=== PATIENT | female | born 1930 | race Caucasian/White ===

== ENCOUNTER 2016-08-07 14:58 | Inpatient (IN) | payer OTHER, MEDICARE ==
[~2016-08-07] VITALS: Ht 160 cm; Wt 87.7 kg
[2016-08-13] MEDS ORDERED: LISI-515 PO (12:12)
[2016-08-13] MEDS ORDERED: MULT-135 PO (12:12)
[2016-08-13] MEDS ORDERED: LATA0.002 EACH EYE (12:12)
[2016-08-13] MEDS ORDERED: ASPI-119 PO (12:12)
[2016-08-13] MEDS ORDERED: OMEP20TA PO (12:12)
[2016-08-13] MEDS ORDERED: LOVA20TA PO (12:12)
--- NOTE | 2016-08-14 07:02 | HHI.DCPOC ---
Discharge Care Plan Diagnosis: (1) Primary localized osteoarthrosis, lower leg (2) Status post total knee replacement, right Your Health Problems Are: Difficulty with ADL Goals to Promote Your Health * To prevent worsening of your condition and complications * To maintain your health at the optimal level Directions to Meet Your Goals Take your medications as prescribed Follow your dietary instruction Follow activity as directed Keep your appointments as scheduled Take your immunizations and boosters as scheduled If your symptoms worsen call your PCP, if no PCP go to Urgent Care Center or Emergency Room Smoking is Dangerous to Your Health. Avoid second hand smoke Call the 24-hour hour crisis hotline for domestic abuse at Lauri Connor Aug 14, 2016 07:02
--- NOTE | 2016-08-14 07:03 | HHI.FF ---
Face to Face Verification Diagnosis: (1) Primary localized osteoarthrosis, lower leg (2) Status post total knee replacement, right Physical Therapy Gait training, Transfer training, bed to chair Knee: Total knee Right LE Weight Bearing: WB as tolerated Right LE Range of Motion: Active ROM Nursing Nursing: Katherine teaching, Dressing changes Dressing Changes: Daily dressing change I have seen patient Mag Rodriguez on 08/14/16. My clinical findings support the need for the requested home health care services because: Limited ability to care for self High risk of falls I certify that my clinical findings support that this patient is homebound because: Post-op weakness Unsteady gait/balance Lauri Connor Aug 14, 2016 07:03
[2016-08-14] MEDS ORDERED: COMMODE 3-IN-11 MIS (07:04)
[2016-08-14] MEDS ORDERED: WALKER WHEELS/F1 MIS (07:04)
[2016-08-14] MEDS ORDERED: CPMMACHINE (07:04)
[2016-08-14] MEDS ORDERED: DEXAMETHASONE SOD PHOS 20 MG/5 ML VIAL IV ONE (07:30)
[2016-08-14] MEDS ORDERED: TRANEXAMIC ACID INJ 829 MG in SODIUM CHLORIDE 0.9% INJ 100 ML IV SCH ×2 (07:30→16:47)
[2016-08-14] MEDS ORDERED: VANCOMYCIN 1000 MG/NS 250 ML (for <70 kg) IV SCH ×2 (07:30)
[2016-08-14] MEDS ORDERED: ROPIVACAINE PERI-ARTICULAR INJECTION. PERIART SCH ×5 (07:30)
[2016-08-14] MEDS ORDERED: ceFAZolin 2 GM PREMIX 50 ML IV SCH (07:30)
[2016-08-14] MEDS: POVIDONE IODINE 7.5% SCRUB 118 ML BOTTLE TOP SCH (07:30)
[2016-08-14] MEDS ORDERED: LACTATED RINGER'S 1000 ML IV SCH (07:45)
[2016-08-14] MEDS ORDERED: INSULIN HUMAN REGULAR 1,000 UNITS/10 ML VIAL SQ PRN (07:45)
[2016-08-14] MEDS ORDERED: SODIUM CHLORID 0.9% 500 ML IV SCH (07:45)
[2016-08-14] MEDS ORDERED: METOPROLOL TARTRATE 25 MG TAB PO PRN (07:45)
[2016-08-14] MEDS ORDERED: LACTATED RINGER'S 1000 ML INJ 1,000 ML IV ONE (08:10)
[2016-08-14] MEDS ORDERED: GENTAMICIN SULFATE 80 MG/2 ML VIAL ONE (08:10)
[2016-08-14] MEDS ORDERED: NEOSTIGMINE 3 MG/3 ML SYR IV ONE (08:10)
[2016-08-14] MEDS ORDERED: ONDANSETRON HCL 4 MG/2 ML VIAL IV PUSH ONE (08:10)
[2016-08-14] MEDS ORDERED: PROPOFOL 200 MG/20 ML AMP IV ONE (08:10)
[2016-08-14] MEDS ORDERED: VITACAP7 PO (08:19)
[2016-08-14 08:27] VITALS: BP 161/69; PULSE 56; RESP 16; TEMP 97.9; O2SAT 99
[2016-08-14] MEDS ORDERED: MIDAZOLAM HCL 2 MG/2 ML VIAL ONE (11:35)
[2016-08-14] MEDS ORDERED: FAMOTIDINE 20 MG/2 ML VIAL ONE (11:35)
[2016-08-14] MEDS ORDERED: BUPIVACAINE LIPOSOME PF 1.3% 20 ML VIAL ONE (12:17)
[2016-08-14] MEDS ORDERED: ACETAMINOPHEN 1000 MG/100 ML VIAL IV ONE (12:54)
[2016-08-14] MEDS ORDERED: HYDROmorphone HCL PF 2 MG/ML VIAL ONE (12:54)
[2016-08-14] MEDS ORDERED: ZOLPIDEM TARTRATE 5 MG TAB PO PRN (13:00)
[2016-08-14] MEDS ORDERED: diphenhydrAMINE HCL 50 MG/ML VIAL IV PRN (13:00)
[2016-08-14] MEDS ORDERED: MAGNESIUM HYDROXIDE SUSP 30 ML CUP PO PRN (13:00)
[2016-08-14] MEDS ORDERED: ONDANSETRON HCL 4 MG/2 ML VIAL IVP PRN (13:00)
[2016-08-14] MEDS ORDERED: SODIUM CHLORIDE 0.9% FLUSH 5 ML FLUSH IVF PRN (13:00)
[2016-08-14] MEDS ORDERED: MORPHINE SULFATE 4 MG/ML INJ IV PUSH PRN (13:00)
[2016-08-14] MEDS ORDERED: ACETAMINOPHEN/HYDROcodone 325 MG/5 MG TAB PO PRN (13:00)
[2016-08-14] MEDS ORDERED: ALUMINUM/MAGNESIUM/SIMETH 30 ML CUP PO PRN (13:00)
[2016-08-14] MEDS ORDERED: BISACODYL 10 MG SUPP PR PRN (13:00)
[2016-08-14] MEDS ORDERED: Post-op Orders (for Pharmacy) MISC XX ONE (13:00)
[2016-08-14] MEDS ORDERED: NALOXONE HCL 0.4 MG/ML AMP IV PRN (13:00)
--- NOTE | 2016-08-14 13:00 | PD.OP ---
cc: Jasson Calix MD Operative Report Date of Surgery: Aug 14, 2016 Preoperative Diagnosis: Right knee severe osteoarthritis Postoperative Diagnosis: Same Procedure: Right total knee arthroplasty Anesthesia: Adductor canal block and general Surgeon: Jasson Calix Mechanical Manufacturing Technician(s): NICK Voss The surgical procedure was assisted by my Advanced Registered Nurse Practitioner. My OPTICAL INSTRUMENT INSPECTOR presence was necessary throughout this case for the manipulation and positioning of the surgical extremity. My OPTICAL INSTRUMENT INSPECTOR was assisting me throughout the duration of this procedure. The skill set of an Advance Registered Nurse Practitioner was medically necessary to complete this procedure. During the surgical case, the fire extinguisher technician was working at the back table and the Advance Registered Nurse Practitioner was directly assisting me. Operation and Findings: IMPLANTS: DePuy Attune: Patella: size 38. Femur, posterior stabilized size 7. Tibia, rotating platform size 8. Tibial insert, rotating platform, posterior stabilized size 6 mm thickness. ESTIMATED BLOOD LOSS: 200 cc TOURNIQUET TIME: 42 minutes at 250 mmHg pressure. JUSTIFICATION FOR PROCEDURE: The patient has end-stage osteoarthritis to the knee. There is an attached conservative measures pathway form in the chart that describes the nonoperative measures that were undertaken prior to consideration of surgical management. The patient understood the risks and benefits of surgical management. See my office notes for further details PROCEDURE: The patient was brought back to the operative theatre. Adequate anesthesia was obtained. The patient received intravenous vancomycin and Ancef. The lower extremity was prepped and draped in the usual sterile fashion.The leg was exsanguinated, the tourniquet was raised. A standard anterior incision was performed followed by medial parapatellar arthrotomy was performed. End-stage arthritis was identified. Osteotomy of the patella was performed. We drilled holes for the patella. We trialed the patella component. We placed an intramedullary guide into the distal femur. We ultimately resected 13 mm off of the distal femur in 5 degrees of valgus. The remnants of the ACL and PCL were resected. Osteotomy of the proximal tibia was performed, resecting 5 mm off of the medial side. This was done with 3 degrees of posterior slope using an extramedullary guide. The distal end of the guide was placed in the mid aspect of the ankle. The femur was sized, and four chamfer cuts were completed in 3 of external rotation. We then cut the central box in the distal femur to replace the PCL. We resected the remnants of the menisci and removed osteophytes off of the femur and tibia. We then trialed the knee. We punched the tibia for the keel, and then used standard technique to cement in components. Excess cement was removed. We trialed the knee again and the final polyethylene thickness was chosen to provide extension to 0 degrees, and flexion of 140 degrees to gravity. The ligaments were appropriately balanced. Lateral release was necessary to obtain excellent patellofemoral tracking. The tourniquet was released and adequate hemostasis was obtained. An intra- articular injection of a ropivacaine cocktail was injected. The posterior knee was inspected for excess cement, which was removed. The final polyethylene was put into position after thorough irrigation. We then closed deep fascia with a #2 Stratafix followed by skin with 2-0 Vicryl followed by renita. Postop plan is to weight-bear as tolerated. DVT prophylaxis will be performed with EUSEBIA Butcher, early mobilization, and Lovenox followed by aspirin. Jasson Calix MD Aug 14, 2016 13:00
[2016-08-14] MEDS ORDERED: ENOX40P SQ (13:02)
[2016-08-14] MEDS ORDERED: NORC5TAB PO (13:02)
[2016-08-14] MEDS ORDERED: ASPI325T PO (13:02)
[2016-08-14] MEDS ORDERED: DO NOT ADM ANY ANTICOAGULANT DRUGS XX PRN (14:43)
[2016-08-14] MEDS: SODIUM CHLOR 0.9% 1000 ML INJ 1,000 ML IV SCH (15:00)
[2016-08-14] MEDS ORDERED: *morphine SULFATE 8 MG/ML PERIprocedure ONLY ONE ×3 (15:17→16:43)
--- NOTE | 2016-08-14 16:23 | RADRPT ---
EXAM DATE/TIME: 08/14/2016 14:45 [facility] COMPARISON: No previous studies available for comparison. INDICATIONS : Post op right knee surgery. MEDICAL HISTORY : None. SURGICAL HISTORY : None. ENCOUNTER: Initial ACUITY: 1 day PAIN SCORE: Non-responsive. LOCATION: Right knee FINDINGS: AP and lateral views of the knee following arthroplasty reveals a prosthesis in anatomic alignment. F racture is not appreciated. Surgical drain is evident CONCLUSION: Status post total knee arthroplasty. Kasi Stout MD FACR Board Certified Radiologist. This report was verified electronically.
[2016-08-14] MEDS ORDERED: ENALAPRILAT 1.25 MG/ML VIAL IV PUSH PRN (18:00)
[2016-08-14 20:45] VITALS: BP 137/64; PULSE 75; RESP 18; TEMP 96.1; O2SAT 97
[2016-08-14] MEDS: LISINOPRIL 20 MG TAB PO SCH (21:05)
[2016-08-14] MEDS: PANTOPRAZOLE SOD 20 MG DELAYED RELEASE TAB PO SCH (21:05)
[2016-08-14] MEDS: PRAVASTATIN SOD 20 MG TAB PO SCH (21:05)
[2016-08-14] MEDS: LATANOPROST 0.005% OPHT SOLN 2.5 ML BTL EACH EYE SCH (21:05)
[2016-08-14] MEDS: SODIUM CHLORIDE 0.9% FLUSH 5 ML FLUSH IVF SCH (21:06)
[2016-08-15] VITALS (8 sets, daily range): BP systolic 96–116; BP diastolic 50–58; PULSE 61–76; RESP 16–18; TEMP 95.7–98.4; O2SAT 93–98
[2016-08-15] MEDS: SODIUM CHLOR 0.9% 1000 ML INJ 1,000 ML IV SCH (01:00)
[2016-08-15] MEDS: POVIDONE IODINE 7.5% SCRUB 118 ML BOTTLE TOP SCH (04:48)
[2016-08-15 05:02] LABS: AUTOMATED NEUTROPHIL # 11.8 TH/MM3 (1.8-7.7); BASOPHIL % 0.1 % (0.0-2.0); HEMO FLAGS DIFF FINAL; LYMPH % 6.7 % (9.0-44.0); LYMPHOCYTE # 0.9 TH/MM3 (1.0-4.8); MEAN CELL VOLUME 89.9 FL (80.0-100.0); MEAN CORPUSCULAR HEMOGLOBIN 29.8 PG (27.0-34.0); MEAN CORPUSCULAR HGB CONC 33.1 % (32.0-36.0); MONO % 6.7 % (0.0-8.0); NEUT % 86.5 % (16.0-70.0); PLATELET COUNT 227 TH/MM3 (150-450); RED BLOOD COUNT 3.45 MIL/MM3 (4.00-5.30); RED CELL DISTRIBUTION WIDTH 12.5 % (11.6-17.2); WHITE BLOOD COUNT 13.6 TH/MM3 (4.0-11.0)
[2016-08-15 05:28] LABS: BICARBONATE 24.8 MEQ/L (21.0-32.0); POTASSIUM 4.5 MEQ/L (3.5-5.1)
[2016-08-15] MEDS ORDERED: POLYETHYLENE GLYCOL 17 GM PKG PO PRN (05:45)
[2016-08-15] MEDS ORDERED: DEXAMETHASONE SOD PHOS 20 MG/5 ML VIAL IV ONE (07:45)
[2016-08-15] MEDS: SODIUM CHLORIDE 0.9% FLUSH 5 ML FLUSH IVF SCH ×2 (10:03→22:00)
[2016-08-15] MEDS: ACETAMINOPHEN/HYDROcodone 325 MG/5 MG TAB PO PRN ×3 (10:10→18:35)
--- NOTE | 2016-08-15 11:16 | PD.CONS ---
HPI Service [facility] Hospitalists Consult Requested By Dr. Calix Reason for Consult Medical management Primary Care Physician Darrell Meléndez MD Diagnoses: (1) Primary localized osteoarthrosis, lower leg (2) Hyperlipidemia (3) Hypertension History of Present Illness The patient is an 86-year-old female seen following right total knee arthroplasty. Hospitalist consult was requested for medical management. Patient states that she is having pain in her right leg, but has no other complaints at this time. Denies headache, blurred vision, chest pain, dyspnea, nausea, vomiting. Review of Systems Constitutional: DENIES: Fever, Chills, Night Sweats Eyes: DENIES: Blurred vision, Vision loss Ears, nose, mouth, throat: DENIES: Hearing loss Respiratory: DENIES: Cough, Wheezing, Sputum production, Shortness of breath Cardiovascular: DENIES: Chest pain, Palpitations, Dyspnea on Exertion, Lower Extremity Edema Gastrointestinal: DENIES: Abdominal pain, Constipation, Diarrhea, Nausea, Vomiting Genitourinary: DENIES: Urinary frequency, Urinary incontinence, Urgency, Hematuria, Dysuria, Nocturia Musculoskeletal: COMPLAINS OF: Joint pain, DENIES: Muscle aches Integumentary: DENIES: Pruritus, Rash Hematologic/lymphatic: DENIES: Bruising Neurologic: DENIES: Headache Past Family Social History Allergies: Coded Allergies: No Known Allergies (Verified , 08/14/16) Past Medical History Hypertension Impaired glucose tolerance Hyperlipidemia GERD Osteoarthritis Past Surgical History Cyst removed from neck 1978 Tonsillectomy Reported Medications Estrace cream twice weekly Aspirin 81 mg daily Latanoprost eyedrops Meclizine as needed Omeprazole 20 mg daily Lisinopril 20 mg daily Lovastatin 20 mg daily Vitamin D 3 Family History Cancer Hypertension Social History Quit smoking more than 10 years ago. Denies illicit drug use. Drinks a couple glasses of wine per day. Physical Exam Vital Signs Vital Signs Date Time Temp Pulse Resp B/P Pulse Ox O2 Delivery O2 Flow Rate FiO2 08/15/16 08:40 98 Nasal Cannula 3.00 08/15/16 08:15 95.7 62 18 96/50 98 08/15/16 04:00 96.9 63 18 98/51 98 08/15/16 00:00 97.3 61 18 100/52 97 08/14/16 20:45 96.1 75 18 137/64 97 08/14/16 20:45 96.1 75 18 137/64 97 08/14/16 19:00 97.7 63 11 126/66 93 Nasal Cannula 4 08/14/16 18:00 75 12 130/68 94 Nasal Cannula 4 08/14/16 17:00 79 12 157/87 95 Nasal Cannula 4 08/14/16 16:30 63 12 141/68 97 Nasal Cannula 4 08/14/16 16:00 97.7 60 12 145/71 95 Nasal Cannula 4 08/14/16 15:30 67 12 161/79 92 Nasal Cannula 4 08/14/16 15:15 71 12 177/91 97 Nasal Cannula 4 08/14/16 15:00 72 17 162/83 94 Nasal Cannula 4 08/14/16 14:45 98.7 86 14 185/91 95 Nasal Cannula 4 Physical Exam GENERAL: Elderly female in no acute distress. HEENT: Normocephalic, atraumatic. Pupils equal, round and reactive. Extraocular movements intact. No scleral icterus. No injection or drainage. Oropharynx is clear. Mucous membranes are moist. CARDIOVASCULAR: Regular rate and rhythm without murmurs, gallops, or rubs. RESPIRATORY: Clear to auscultation. No wheezes, rales, or rhonchi. Breathing is non-labored. GASTROINTESTINAL: Abdomen soft, non-tender, nondistended. EXTREMITIES: No lower extremity edema. No calf tenderness. EUSEBIA hose. PSYCH: Alert and oriented x 3. Laboratory Laboratory Tests Test 08/15/16 04:38 White Blood Count 13.6 Red Blood Count 3.45 Hemoglobin 10.3 Hematocrit 31.0 Mean Corpuscular Volume 89.9 Mean Corpuscular Hemoglobin 29.8 Mean Corpuscular Hemoglobin 33.1 Concent Red Cell Distribution Width 12.5 Platelet Count 227 Mean Platelet Volume 7.9 Neutrophils (%) (Auto) 86.5 Lymphocytes (%) (Auto) 6.7 Monocytes (%) (Auto) 6.7 Eosinophils (%) (Auto) 0.0 Basophils (%) (Auto) 0.1 Neutrophils # (Auto) 11.8 Lymphocytes # (Auto) 0.9 Monocytes # (Auto) 0.9 Eosinophils # (Auto) 0.0 Basophils # (Auto) 0.0 CBC Comment DIFF FINAL Differential Comment Sodium Level 141 Potassium Level 4.5 Chloride Level 109 Carbon Dioxide Level 24.8 Anion Gap 7 Blood Urea Nitrogen 18 Creatinine 0.78 Estimat Glomerular Filtration 70 Rate Random Glucose 106 Calcium Level 8.0 Result Diagram: 08/15/168 08/15/16 0438 Imaging Last Impressions Knee X-Ray 08/14/16 1255 Signed Impressions: Service Date/Time: Sunday, August 14, 2016 14:45 - CONCLUSION: Status post total knee arthroplasty. Kasi Stout MD Assessment and Plan Assessment and Plan 1. Osteoarthritis: Status post right total knee arthroplasty, POD #1. Management per orthopedic surgery. Continue pain control, bowel regimen, physical therapy. 2. Hypertension: Blood pressure is borderline low. On lisinopril. 3. Hyperlipidemia: Continue statin. GERD: Continue PPI. 4. DVT prophylaxis: Lovenox. Christ Cortes MD Aug 15, 2016 11:16
--- NOTE | 2016-08-15 12:58 | PD.ORT.PN ---
Subjective Post Op Day #: 1 Subjective Remarks Patient is resting in bed, using CPM. Patient has been ambulatory and still has Larkin cath in place. 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 Patient is c/o some right calf pain. Objective Vitals Vital Signs Date Time Temp Pulse Resp B/P Pulse Ox O2 Delivery O2 Flow Rate FiO2 08/15/16 12:06 97.5 76 16 105/52 93 08/15/16 08:40 98 Nasal Cannula 3.00 08/15/16 08:15 95.7 62 18 96/50 98 08/15/16 04:00 96.9 63 18 98/51 98 08/15/16 00:00 97.3 61 18 100/52 97 08/14/16 20:45 96.1 75 18 137/64 97 08/14/16 20:45 96.1 75 18 137/64 97 08/14/16 19:00 97.7 63 11 126/66 93 Nasal Cannula 4 08/14/16 18:00 75 12 130/68 94 Nasal Cannula 4 08/14/16 17:00 79 12 157/87 95 Nasal Cannula 4 08/14/16 16:30 63 12 141/68 97 Nasal Cannula 4 08/14/16 16:00 97.7 60 12 145/71 95 Nasal Cannula 4 08/14/16 15:30 67 12 161/79 92 Nasal Cannula 4 08/14/16 15:15 71 12 177/91 97 Nasal Cannula 4 08/14/16 15:00 72 17 162/83 94 Nasal Cannula 4 08/14/16 14:45 98.7 86 14 185/91 95 Nasal Cannula 4 I/O 08/14/16 08/14/16 08/14/16 08/15/16 08/15/16 08/15/16 07:00 15:00 23:00 07:00 15:00 23:00 Intake Total 1400 ml 120 ml 480 ml Output Total 125 ml 150 ml 250 ml Balance 1275 ml -30 ml 230 ml Intake Oral 120 ml 480 ml Other 1400 ml Output Urine Total 150 ml 250 ml Estimated Blood Loss 25 ml Other 100 ml # Voids 1 Result Diagram: 08/15/16 0438 08/15/16 0438 Imaging Last 24 hours Impressions Knee X-Ray 08/14/16 1255 Signed Impressions: Service Date/Time: Sunday, August 14, 2016 14:45 - CONCLUSION: Status post total knee arthroplasty. Kasi Stout MD Procedures Right TKA Objective Remarks The patient's dressing is C/D/I. EHL/TA/G intact. 2+ pedal pulse. Mild to moderate swelling. Calf is soft but moderately tender to palpation. + SILT. Assessment & Plan Ortho Post Op Day #: 1 Problem List: Assessment and Plan POD #1: Right TKA 1. WBAT RLE 2. Lovenox for DVT prophylaxis 3. Ice to the right knee PRN 4. Remove Larkin cath now 5. Stat US to r/o DVT ro right leg secondary to calf tenderness. 6. Anticipatory discharge home with home health on Friday. Lauri Connor Aug 15, 2016 12:58
[2016-08-15] MEDS: ENOXAPARIN SODIUM 40 MG/0.4 ML SYRINGE SQ SCH (13:56)
--- NOTE | 2016-08-15 15:23 | RADRPT ---
EXAM DATE/TIME: 08/15/2016 13:25 [facility] COMPARISON: No previous studies available for comparison. INDICATIONS : Right leg pain. MEDICAL HISTORY : Hypercholesterolemia. Hypertension. Gastroesophageal reflux disease. Arthrit is. SURGICAL HISTORY : Tonsillectomy. Cataract removal. Bladder sling. Orthopedic surgery, right s [facility]. Skin cancer removed from left hand. ENCOUNTER: Initial ACUITY: 2 weeks PAIN SCORE: 10/10 LOCATION: Right leg. TECHNIQUE: Venous ultrasound of the leg was performed from the inguinal ligament to the proximal calf. Real-time, color Doppler and spectral tracing, compression and augmentation techniques were us ed. FINDINGS: There is normal compressibility of the deep venous system from the inguinal region to the proximal ca lf. No echogenic clot is seen in the lumen of the common femoral, femoral, popliteal, and posterior tibial veins. There is a normal response of the venous system to proximal and distal augmentation an d respiration. There is a hypoechoic complex fluid collection identified within the popliteal fossa. Given the patie nt's history of right knee arthroplasty yesterday this is likely a hematoma. CONCLUSION: #1. No evidence of DVT. #2. Fluid collection identified within the popliteal fossa which likely represents hematoma given rec ent surgery. Regla Mcfadden MD on August 15, 2016 at 15:20 Board Certified Radiologist. This report was verified electronically.
[2016-08-15] MEDS: DOCUSATE SODIUM 100 MG CAP PO SCH (21:59)
[2016-08-15] MEDS: MULTIVITAMINS/MINERALS THERAPEUTIC TAB PO SCH (21:59)
[2016-08-15] MEDS: PRAVASTATIN SOD 20 MG TAB PO SCH (21:59)
[2016-08-15] MEDS: LISINOPRIL 20 MG TAB PO SCH (21:59)
[2016-08-15] MEDS: PANTOPRAZOLE SOD 20 MG DELAYED RELEASE TAB PO SCH (22:00)
[2016-08-15] MEDS: LATANOPROST 0.005% OPHT SOLN 2.5 ML BTL EACH EYE SCH (22:01)
[2016-08-16] VITALS: BP 102/50; PULSE 76; RESP 16; TEMP 96.4; O2SAT 94
[2016-08-16] MEDS: SODIUM CHLOR 0.9% 1000 ML INJ 1,000 ML IV SCH (07:00)
[2016-08-16 07:10] LABS: HEMATOCRIT 27.6 % (35.0-46.0); MEAN CELL VOLUME 88.2 FL (80.0-100.0); MEAN CORPUSCULAR HEMOGLOBIN 30.7 PG (27.0-34.0); MEAN CORPUSCULAR HGB CONC 34.8 % (32.0-36.0); PLATELET COUNT 190 TH/MM3 (150-450); RED BLOOD COUNT 3.13 MIL/MM3 (4.00-5.30); RED CELL DISTRIBUTION WIDTH 12.5 % (11.6-17.2); REVIEW FLAG FINAL; WHITE BLOOD COUNT 9.8 TH/MM3 (4.0-11.0)
[2016-08-16] MEDS: POVIDONE IODINE 7.5% SCRUB 118 ML BOTTLE TOP SCH (07:30)
[2016-08-16 08:00] VITALS: BP 140/62; PULSE 65; RESP 16; TEMP 98; O2SAT 98
[2016-08-16] MEDS: ACETAMINOPHEN/HYDROcodone 325 MG/5 MG TAB PO PRN ×2 (08:22→13:17)
[2016-08-16] MEDS: DOCUSATE SODIUM 100 MG CAP PO SCH (08:22)
[2016-08-16] MEDS: MULTIVITAMINS/MINERALS THERAPEUTIC TAB PO SCH (08:22)
[2016-08-16] MEDS: SODIUM CHLORIDE 0.9% FLUSH 5 ML FLUSH IVF SCH (08:23)
[2016-08-16] MEDS: ENOXAPARIN SODIUM 40 MG/0.4 ML SYRINGE SQ SCH (13:15)
--- NOTE | 2016-08-16 15:24 | PD.ORT.PN ---
Subjective Post Op Day #: 2 Subjective Remarks Patient is OOB in chair with moderate pain to the right knee. Patient states she is ready to go home with home health. Objective Vitals Vital Signs Date Time Temp Pulse Resp B/P Pulse Ox O2 Delivery O2 Flow Rate FiO2 08/16/16 08:00 98.0 65 16 140/62 98 08/16/16 00:00 96.4 76 16 102/50 94 08/15/16 20:25 98 08/15/16 20:00 97.6 61 16 110/57 95 08/15/16 16:10 98.4 64 16 116/58 93 I/O 08/15/16 08/15/16 08/15/16 08/16/16 08/16/16 08/16/16 07:00 15:00 23:00 07:00 15:00 23:00 Intake Total 480 ml 860 ml 240 ml 240 ml Output Total 250 ml Balance 230 ml 860 ml 240 ml 240 ml Intake Oral 480 ml 860 ml 240 ml 240 ml Output Urine Total 250 ml # Voids 1 1 2 # Bowel Movements 0 0 Result Diagram: 08/16/16 0630 08/15/16 0438 Imaging Last 24 hours Impressions Knee X-Ray 08/14/16 1255 Signed Impressions: Service Date/Time: Sunday, August 14, 2016 14:45 - CONCLUSION: Status post total knee arthroplasty. Kasi Stout MD Procedures Right TKA Objective Remarks The patient's dressing was changed with scant serosanguineous drainage. Incision is well approximated with surgical clips intact. No redness or s/s of infection. EHL/TA/G intact. 2+ pedal pulse. Moderate swelling. Calf is soft and mildly tender. + SILT. Last 48 hours Impressions Lower Extremity Ultrasound 08/15/16 0000 Signed Impressions: Service Date/Time: July 13:25 - CONCLUSION: #1. No evidence of DVT. #2. Fluid collection identified within the popliteal fossa which likely represents hematoma given recent surgery. Regla Mcfadden MD Assessment & Plan Ortho Post Op Day #: 2 Problem List: Assessment and Plan POD #2: Right TKA 1. WBAT RLE 2. Lovenox for DVT prophylaxis 3. Ice to the right knee PRN 4. US was negative for DVT. 5. Stable for discharge home with home health today. Lauri Connor Aug 16, 2016 15:24
--- NOTE | 2016-08-16 16:00 | HHI.PR ---
Subjective Remarks Follow-up hypertension. Patient has been cleared for discharge by orthopedic surgery. She is having more pain in the right knee today, but the pain medications are helping. No chest pain or dyspnea. No nausea or vomiting. Objective Vitals Vital Signs Date Time Temp Pulse Resp B/P Pulse Ox O2 Delivery O2 Flow Rate FiO2 08/16/16 08:00 98.0 65 16 140/62 98 08/16/16 00:00 96.4 76 16 102/50 94 08/15/16 20:25 98 08/15/16 20:00 97.6 61 16 110/57 95 08/15/16 16:10 98.4 64 16 116/58 93 I/O 08/15/16 08/15/16 08/15/16 08/16/16 08/16/16 08/16/16 07:00 15:00 23:00 07:00 15:00 23:00 Intake Total 480 ml 860 ml 240 ml 240 ml Output Total 250 ml Balance 230 ml 860 ml 240 ml 240 ml Intake Oral 480 ml 860 ml 240 ml 240 ml Output Urine Total 250 ml # Voids 1 1 2 # Bowel Movements 0 0 Result Diagram: 08/16/16 0630 08/15/16 0438 Imaging Last Impressions Lower Extremity Ultrasound 08/15/16 0000 Signed Impressions: Service Date/Time: July 13:25 - CONCLUSION: #1. No evidence of DVT. #2. Fluid collection identified within the popliteal fossa which likely represents hematoma given recent surgery. Regla Mcfadden MD Knee X-Ray 08/14/16 1255 Signed Impressions: Service Date/Time: Sunday, August 14, 2016 14:45 - CONCLUSION: Status post total knee arthroplasty. Kasi Stout MD Objective Remarks General: Elderly female in no acute distress. Heart: Regular rate and rhythm. No murmur. Lungs: Clear to auscultation bilaterally. No wheezes, rales, or rhonchi. Breathing is nonlabored. Abdomen: Soft, nontender, nondistended. Extremities: No lower extremity edema. Psych: Alert and oriented. Procedures 08/14/16 right total knee arthroplasty Urinary Catheter: No Vascular Central Line Catheter: No A/P Problem List: (1) Primary localized osteoarthrosis, lower leg ICD Code: M17.10 Status: Acute (2) Hyperlipidemia ICD Code: E78.5 Status: Chronic (3) Hypertension ICD Code: I10 Status: Chronic Assessment and Plan 1. Osteoarthritis: Status post right total knee arthroplasty, POD #2. Management per orthopedic surgery. Continue pain control, bowel regimen, physical therapy. 2. Hypertension: Blood pressure is improved. On lisinopril. 3. Hyperlipidemia: Continue statin. GERD: Continue PPI. 4. DVT prophylaxis: Lovenox. Discharge Planning Discharge home with home health care per orthopedic surgery. Christ Cortes MD Aug 16, 2016 16:00
--- NOTE | 2016-08-17 17:21 | HHI.DS ---
Discharge Summary Admission Date Aug 14, 2016 at 06:38 Discharge Date: Aug 16, 2016 Admitting Diagnosis Primary localized OA, lower leg Status post total knee replacement, right Diagnosis: (1) Primary localized osteoarthrosis, lower leg Diagnosis: Principal (2) Status post total knee replacement, right Diagnosis: Principal Procedures Right TKA Brief History This is a 86 year old female patient with severe OA of the right knee CBC/BMP: 08/16/16 0630 08/15/16 0438 Significant Findings Laboratory Tests Test 08/15/16 08/16/16 04:38 06:30 White Blood Count 13.6 TH/MM3 (4.0-11.0) Red Blood Count 3.45 MIL/MM3 3.13 MIL/MM3 (4.00-5.30) (4.00-5.30) Hemoglobin 10.3 GM/DL 9.6 GM/DL (11.6-15.3) (11.6-15.3) Hematocrit 31.0 % 27.6 % (35.0-46.0) (35.0-46.0) Neutrophils (%) (Auto) 86.5 % (16.0-70.0) Lymphocytes (%) (Auto) 6.7 % (9.0-44.0) Neutrophils # (Auto) 11.8 TH/MM3 (1.8-7.7) Lymphocytes # (Auto) 0.9 TH/MM3 (1.0-4.8) Chloride Level 109 MEQ/L (98-107) Estimat Glomerular Filtration 70 ML/MIN (>89) Rate Calcium Level 8.0 MG/DL (8.5-10.1) PE at Discharge The patient's dressing was changed with scant serosanguineous drainage. Incision is well approximated with surgical clips intact. No redness or s/s of infection. EHL/TA/G intact. 2+ pedal pulse. Moderate swelling. Calf is soft and mildly tender. + SILT. Last 48 hours Impressions Lower Extremity Ultrasound 08/15/16 0000 Signed Impressions: Service Date/Time: July 13:25 - CONCLUSION: #1. No evidence of DVT. #2. Fluid collection identified within the popliteal fossa which likely represents hematoma given recent surgery. Regla Mcfadden MD Hospital Course The patient was admitted to the hospital for severe OA of the right knee to have a right TKA. The patient's surgery went well without complication. The patient had a normal hospital course. The patient is WBAT with the use of a walker. The patient was discharged home with home health and will f/u in the office with Dr. Calix in 1-2 weeks. Pt Condition on Discharge: Stable Discharge Disposition: Disch w/ Home Health Serv Discharge Instructions Diet Instructions: As Tolerated, No Restrictions Activities You Can Perform: Weight Bearing as Ramesh Activities to Avoid: Strenuous Activity Follow up Referrals: Orthopedics with Jasson Calix MD New Medications: Aspirin (Aspirin) 325 Mg Tab 325 MG PO DAILY Start Aspirin after Lovenox is completed. Prevent Blood Clot # 30 Ref 0 TAB Commode 3-in-1 (Commode 3-in-1) 1 Mis Mis 1 EA .ROUTE DIRECTED #1 Ref 0 EA CPM-Continuous Passive Motion Machine (CPM-Continuous Passive Motion Machine) 1 Ea Device 1 EA .ROUTE DIRECTED #1 Ref 0 EA Enoxaparin Inj (Lovenox Inj) 40 Mg/0.4 Ml Syr 40 MG SQ DAILY Start Aspirin after Lovenox is completed. Blood Clot Prevention # 10 Ref 0 SYRINGE Hydrocodone-Acetaminophen ([place]) 5-325 mg Tab 1-2 TAB PO Q4H PRN PAIN #60 Ref 0 TAB Walker with Front Wheels (Walker with Front Wheels) 1 Mis Mis 1 EA .ROUTE DIRECTED #1 Ref 0 EA Continued Medications: Latanoprost Opth Drops (Latanoprost Opth Drops) 0.005% Drops 1 DROP EACH EYE HS Refrigerate until opened. Glaucoma #2.5 Ref 0 ML Lisinopril (Lisinopril) 20 Mg Tab 20 MG PO HS #30 Ref 0 TAB Lovastatin (Lovastatin) 20 Mg Tab 20 MG PO HS Cholesterol Management #30 Ref 0 TAB Multiple Vitamin (Multi Vitamin) 1 Tab Tab 1 TAB PO DAILY TAB Omeprazole (Omeprazole) 20 Mg Tab 20 MG PO HS #30 Ref 0 TAB Discontinued Medications: Aspirin (Pritesh Low Dose) 81 Mg Tabdr 81 MG PO HS Lauri Connor Aug 17, 2016 17:21
== END 2016-08-16 16:21 | disposition home health service (06) | DRG 470 ==
LOC: HSDI 08-14 06:38 → N06A 08-14 20:05
PROVIDERS: ADMIT Orthopaedic Surgery; ATTEND Orthopaedic Surgery
PROC: 3E0T3CZ (ICD-10-PCS; 2016-08-14)
PROC: 0SRC0J9 Replacement of Right Knee Joint with Synthetic Substitute, Cemented, Open Approach (ICD-10-PCS; principal; 2016-08-14 12:35)
DX: M17.11 Unilateral primary osteoarthritis, right knee (principal); I10 Essential (primary) hypertension; E78.5 Hyperlipidemia, unspecified; K21.9 Gastro-esophageal reflux disease without esophagitis; M79.661 Pain in right lower leg
CPT/HCPCS: 73560; 80048; 85025; 85027; 86850; 86900; 86901; 93971; 94150; C1776; C9290; J0131; J0171; J0690; J0735; J1100; J1170; J1580; J1650; J1885; J2250; J2270; J2405; J2710; J2795; J3010; J3370; J7030; J7050; J7120; L1830

== ENCOUNTER 2016-12-31 17:49 | Emergency (ER) | payer OTHER ==
[~2016-12-31] VITALS: Ht 160 cm; Wt 80.0 kg
[~2016-12-31 17:49] MED LIST: ASPI325T PO; COMMODE 3-IN-11 MIS; CPMMACHINE; ENOX40P SQ; LATA0.002 EACH EYE; LISI-515 PO; LOVA20TA PO; MULT-135 PO; NORC5TAB PO; OMEP20TA PO; VITACAP7 PO; WALKER WHEELS/F1 MIS
[2016-12-31 18:05] VITALS: BP 156/66; PULSE 74; RESP 16; TEMP 99.5; O2SAT 96
[2016-12-31] MEDS ORDERED: ASPI81TA11 PO (18:54)
[2016-12-31] MEDS ORDERED: OMEP20TA PO (18:54)
[2016-12-31] MEDS ORDERED: LOVA10TA PO (18:54)
[2016-12-31] MEDS ORDERED: LISI2.5T3 PO (18:54)
[2016-12-31] MEDS ORDERED: UNKNOWN ABX PO (18:54)
--- NOTE | 2016-12-31 19:18 | PD ---
HPI Chief Complaint: Edema Time Seen by Provider: 18:54 Travel History International Travel<30 days: No Contact w/Intl Traveler<30days: No Traveled to known affect area: No History of Present Illness HPI 86 yo F c/o pain along plantar aspect of of her right foot with sensation of a foreign body. Pt walks about her house in bare feet and notes there is currently a quezada working inside. Work soaks have not been helpful. Over the past 2 weeks approximately the patient has had increasing swelling of the LLE from the foot to about the knee. Approx five months prior pt underwent R TKA. She notes diagnosis of a Shaw's Cyst by orthopedics in the office however no ultrasound was performed. Pt not on anticoagulation. No hx DVT. No recent trauma she can recall. She saw here PMD regarding FB sensation and was prescribed Keflex which she has been taking dutifully. 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) Neurologic: No Psychiatric: No Reproductive: No Respiratory: No Immunizations Current: Yes Thyroid Disease: No Influenza Vaccination: Yes ?: Not Past Surgical History AICD: No Body Medical Devices: NONE PER PT Genitourinary Surgery: Yes (BLADDER SLING 2010) Joint Replacement: Yes (RIGHT KNEE) Pacemaker: No Tonsillectomy: Yes Social History Alcohol Use: Yes (1-2 GLASSES WINE DAILY) Tobacco Use: No Substance Use: No Allergies-Medications (Allergen,Severity, Reaction): Coded Allergies: No Known Allergies (Verified , 12/31/16) Reported Meds & Prescriptions Reported Meds & Active Scripts Active Reported [Unknown Abx] 1 Tab PO TID Omeprazole 20 Mg Tab 20 Mg PO HS Lisinopril 2.5 Mg Tab Unknown Dose PO HS Lovastatin 10 Mg Tab Unknown Dose PO HS Aspirin EC (Aspirin) 81 Mg Tabdr 81 Mg PO HS Review of Systems Except as stated in HPI: all other systems reviewed are Neg General / Constitutional: No: Fever, Chills Musculoskeletal: Positive: Edema Physical Exam Narrative GENERAL: 86 yo F, pleasant WNWD NAD SKIN: Warm and dry. Along plantar aspect R foot along plantar aspect in between 2nd and 3rd MTP articulations appears approx a 2mm focus of potential foreign body somewhat zamudio and white in appearance with minimal adjacent TTP and a conical shaped elevation underlying, in and about the FB of approx 1cm in diameter; no puss/erythema/warmth. HEAD: Atraumatic. Normocephalic. EYES: Pupils equal and round. No scleral icterus. No injection or drainage. ENT: No nasal bleeding or discharge. Mucous membranes pink and moist. NECK: Trachea midline. No JVD. CARDIOVASCULAR: Regular rate and rhythm. RESPIRATORY: No accessory muscle use. Clear to auscultation. Breath sounds equal bilaterally. GASTROINTESTINAL: Abdomen soft, non-tender, nondistended. Hepatic and splenic margins not palpable. MUSCULOSKELETAL: Extremities without clubbing, cyanosis. No obvious deformities. Trace minimal edema about the knee through the foot on the right side. Trace vascular/venous prominence along R calf with minimal tenderness. NEUROLOGICAL: Awake and alert. No obvious cranial nerve deficits. Motor grossly within normal limits. Five out of 5 muscle strength in the arms and legs. Normal speech. PSYCHIATRIC: Appropriate mood and affect; insight and judgment normal. Data Data Last Documented VS Vital Signs Date Time Temp Pulse Resp B/P Pulse Ox O2 Delivery O2 Flow Rate FiO2 12/31/16 18:05 99.5 74 16 156/66 96 VS reviewed Orders Us Leg Venous Doppler (12/31/16 ) Foot, Limited (2vws) (12/31/16 ) [facility] [place] Medical Decision Making Medical Screen Exam Complete: Yes Emergency Medical Condition: Yes Medical Record Reviewed: Yes Differential Diagnosis Cellulitis, DVT, superficial thrombophlebitis, FB in foot Narrative Course Attempt at extrication of FB from plantar aspect of foot was performed. Copious dried skin surrounded the apparent FB which appeared most ricardo to a minute portion glass, which had since broken into numerous even smaller pieces, and no predominant largest portion of glass was extricable. Post procedural plain film revealed no radiopaque FB although DVT study revealed Shaw's Cyst, which had evidently been seen earlier. Pt has orthopedics, Dr Calix for follow up. Reassurance provided. Return precautions as well as f/u indications with podiatry discussed. Last 24 hours Impressions Lower Extremity Ultrasound 12/31/16 0000 Signed Impressions: Service Date/Time: Saturday, December 31, 2016 19:55 - CONCLUSION: No DVT of the right lower extremity. Shaw's cyst again noted. Mukund Petersen MD Foot X-Ray 12/31/16 0000 Signed Impressions: Service Date/Time: Saturday, December 31, 2016 19:33 - CONCLUSION: Osteopenia without fracture or subluxation of the right foot. Nonspecific soft tissue swelling. Mukund Petersen MD Diagnosis Primary Impression: Foreign body in foot, right Qualified Code: S90.851A - Foreign body in foot, right, initial encounter Additional Impressions: Edema Qualified Code: R60.0 - Localized edema Shaw's cyst of knee Qualified Code: M71.21 - Shaw's cyst of knee, right Referrals: João Ortiz DPM 2 days Orthopaedic Surgeon call for appointment Additional Instructions: You have a choice when it comes to health care, and we are glad that you chose [facility]. Hopefully, we have met your expectations on today's visit. You are welcome to return to [facility] at any time, as we are committed to meeting the health care needs of our community. Med/Other Pt SpecificInfo: No Change to Meds Disposition: 01 DISCHARGE HOME Condition: Stable Lauri Jimenes MD Dec 31, 2016 19:18
--- NOTE | 2016-12-31 19:56 | RADHPO ---
EXAM DATE/TIME: 12/31/2016 19:33 [facility] COMPARISON: No previous studies available for comparison. INDICATIONS : Right foot pain. Evaluate for foreign body. Patient stood on glass and had glass in plantar surface o f foot between second and third metatarals. MEDICAL HISTORY : None. SURGICAL HISTORY : None. ENCOUNTER: Initial ACUITY: 4 - 6 days PAIN SCORE: 2/10 LOCATION: Right foot. FINDINGS: Bones of the right foot are osteopenic. I don't see a fracture or subluxation. There is fairly genera lized and forefoot predominant mild soft tissue swelling. Small heel spur noted. CONCLUSION: Osteopenia without fracture or subluxation of the right foot. Nonspecific soft tissue swelling. Mukund Petersen MD on December 31, 2016 at 19:53 Board Certified Radiologist. This report was verified electronically.
--- NOTE | 2016-12-31 20:11 | RADHPO ---
EXAM DATE/TIME: 12/31/2016 19:55 [facility] COMPARISON: US LEG RIGHT VENOUS DOPPLER, August 15, 2016, 13:25. INDICATIONS : Right leg swelling. MEDICAL HISTORY : Hypercholesterolemia. Hypertension. Gastroesophageal reflux disease. Bilateral cataracts. Anticoag ulant therapy, Aspirin. Arthritis. Skin cancer. SURGICAL HISTORY : Tonsillectomy. Bladder sling. Right shoulder surgery. Right knee replacement. Skin cancer removed for left hand. ENCOUNTER: Subsequent ACUITY: 2 months PAIN SCORE: 4/10 LOCATION: Right leg. TECHNIQUE: Venous ultrasound of the leg was performed from the inguinal ligament to the proximal calf. Real-lisa e, color Doppler and spectral tracing, compression and augmentation techniques were used. FINDINGS: There is normal compressibility of the deep venous system from the inguinal region to the proximal ca lf. No echogenic clot is seen in the lumen of the common femoral, femoral, popliteal, and posterior tibial veins. There is a normal response of the venous system to proximal and distal augmentation an d respiration. 3.8 x 1.4 x 6.3 cm fluid collection seen posterior to the knee, not new. CONCLUSION: No DVT of the right lower extremity. Shaw's cyst again noted. Mukund Petersen MD on December 31, 2016 at 20:08 Board Certified Radiologist. This report was verified electronically.
[2016-12-31 20:58] VITALS: BP 148/72
== END 2016-12-31 21:00 | disposition home or self-care (01) ==
LOC: PHED 17:49
DX: S90.851A Superficial foreign body, right foot, initial encounter (principal); M71.21 Synovial cyst of popliteal space [Baker], right knee; R60.0 Localized edema
CPT/HCPCS: 28190; 73620; 93971